=== PATIENT | male | born 1980 | race Caucasian/White ===

== ENCOUNTER 2017-01-20 15:10 | Inpatient (IN) | payer MEDICARE, MEDICAID ==
[~2017-01-20] VITALS: Ht 177.8 cm; Wt 124.0 kg
[~2017-01-20 15:10] MED LIST: ALPR1TAB2 PO; BUSP5TAB2 PO; CITA20TA9 PO; DIAZ10TA4 PO; DIAZ2TAB3 PO; ESZO1TAB6 PO; FLUO20CA19 PO; FLUO40CA9 PO; LAMO25TB2 PO; LEVE250T28 PO; LEVE500T38 PO; LEVE500T53 PO; MORP-52 PO; OMEP-110 PO; OXYC10TA6 PO; PHEN100C PO; PHEN200C3 PO; TRAZ100T15 PO; TRAZ50TA18 PO
[2017-01-20 15:54] LABS: BLOOD UREA NITROGEN 8 mg/dL (7-18)
[2017-01-20] MEDS ORDERED: ONDANSETRON ODT 8 MG ONE (17:55)
[2017-01-20] MEDS ORDERED: OXYcodone IR 5MG TABLET ONE (17:55)
[2017-01-20] MEDS ORDERED: OXYcodone IR 5MG TABLET PO ONE (18:00)
[2017-01-20] MEDS ORDERED: ONDANSETRON ODT 8 MG PO ONE (18:00)
[2017-01-20] MEDS ORDERED: LABETALOL 5MG/ML 40ML VIAL IVPush PRN (20:30)
[2017-01-20] MEDS ORDERED: ONDANSETRON ODT 4 MG PO PRN (20:30)
[2017-01-20] MEDS ORDERED: BISACODYL 10 MG SUPP PR PRN (20:30)
[2017-01-20] MEDS ORDERED: POLYETHYLENE GLYCOL 17 GM PACKET PO PRN (20:30)
[2017-01-20 22:08] VITALS: BP 114/76
[2017-01-20] MEDS: OXYcodone IR 5MG TABLET PO PRN (23:07)
[2017-01-20] MEDS: DIAZEPAM 2 MG TABLET PO PRN (23:50)
[2017-01-21] MEDS: ZOLPIDEM 5MG TABLET PO PRN ×2 (01:08→23:09)
[2017-01-21] MEDS: LEVETIRACETAM 100 MG/ML ORAL SOL PO SCH ×2 (01:09→08:40)
[2017-01-21 01:45] VITALS: BP 117/83
[2017-01-21] MEDS: OXYcodone IR 5MG TABLET PO PRN ×3 (05:52→20:23)
[2017-01-21 06:14] LABS: BLOOD UREA NITROGEN 10 mg/dL (7-18)
[2017-01-21 07:15] VITALS: BP 128/81
[2017-01-21 07:32] LABS: DAU SCREEN DISCLAIMER
[2017-01-21] MEDS: OMEPRAZOLE 20 MG CAPSULE.DR PO SCH (08:39)
[2017-01-21] MEDS: NAPROXEN 500 MG TABLET PO PRN (08:39)
[2017-01-21] MEDS: FLUOXETINE 20 MG CAPSULE PO SCH (08:40)
[2017-01-21] MEDS ORDERED: SENNA/DOCUSATE TABLET PO SCH (09:00)
[2017-01-21 13:02] VITALS: BP 123/80
[2017-01-21] MEDS: ASA/APAP/ CAFFEINE TABLET PO PRN (15:56)
[2017-01-21] MEDS ORDERED: SUMATRIPTAN 6MG/0.5ML SQ ONE (16:30)
[2017-01-21] MEDS: LEVETIRACETAM 1,000 MG in SODIUM CHLORIDE 0.9% 100 ML IV SCH (18:14)
[2017-01-21 19:39] VITALS: BP 116/76
[2017-01-21] MEDS: DIAZEPAM 2 MG TABLET PO PRN (23:09)
[2017-01-22 00:48] VITALS: BP 141/85
[2017-01-22] MEDS: OXYcodone IR 5MG TABLET PO PRN ×3 (04:34→21:15)
[2017-01-22] MEDS: LEVETIRACETAM 1,000 MG in SODIUM CHLORIDE 0.9% 100 ML IV SCH ×2 (06:14→18:39)
[2017-01-22 08:17] VITALS: BP 109/74
[2017-01-22] MEDS: ONDANSETRON 2MG/ML, 2ML IVPush PRN ×2 (08:59→11:34)
[2017-01-22] MEDS: SENNA/DOCUSATE TABLET PO SCH (09:00)
[2017-01-22] MEDS: FLUOXETINE 20 MG CAPSULE PO SCH (09:02)
[2017-01-22] MEDS: ASA/APAP/ CAFFEINE TABLET PO PRN (09:02)
[2017-01-22] MEDS: OMEPRAZOLE 20 MG CAPSULE.DR PO SCH (09:02)
[2017-01-22 09:12] LABS: ASPARTATE AMINO TRANSFERASE 7 U/L (15-37); BLOOD UREA NITROGEN 14 mg/dL (7-18)
[2017-01-22 13:20] VITALS: BP 130/80
[2017-01-22] MEDS: DIAZEPAM 2 MG TABLET PO PRN (14:17)
[2017-01-22] MEDS ORDERED: SUMATRIPTAN 6MG/0.5ML SQ ONE (16:00)
[2017-01-22 19:11] VITALS: BP 120/76
[2017-01-22] MEDS: NAPROXEN 500 MG TABLET PO PRN (21:15)
[2017-01-22] MEDS: ZOLPIDEM 5MG TABLET PO PRN (22:40)
[2017-01-23 00:24] VITALS: BP 128/85
[2017-01-23] MEDS: LEVETIRACETAM 1,000 MG in SODIUM CHLORIDE 0.9% 100 ML IV SCH (06:06)
[2017-01-23] MEDS: OXYcodone IR 5MG TABLET PO PRN ×2 (06:06→12:26)
[2017-01-23 08:00] VITALS: BP 128/85
[2017-01-23] MEDS: SENNA/DOCUSATE TABLET PO SCH (09:00)
[2017-01-23] MEDS: OMEPRAZOLE 20 MG CAPSULE.DR PO SCH (10:13)
[2017-01-23] MEDS: FLUOXETINE 20 MG CAPSULE PO SCH (10:13)
[2017-01-23] MEDS ORDERED: LEVE100020 PO (10:20)
[2017-01-23] MEDS ORDERED: SUMA6PEN SC (10:20)
[2017-01-23 11:38] VITALS: BP 120/76
== END 2017-01-23 13:05 | disposition home or self-care (01) | DRG 101 ==
LOC: ED 18:31 → 4WST 18:32 → INTOOBSV 18:32 → ED 19:23 → 3NE 22:00 → OBSVTOIN 01-21 08:37 → INTOOBSV 01-21 08:37 → DCLOUNGE 01-23 12:48
PROVIDERS: ADMIT Family Medicine; ATTEND Family Medicine
DX: G40.209 Localization-related (focal) (partial) symptomatic epilepsy and epileptic syndromes with complex partial seizures, not intractable, without status epilepticus (principal); G43.909 Migraine, unspecified, not intractable, without status migrainosus; F32.9 Major depressive disorder, single episode, unspecified; F41.9 Anxiety disorder, unspecified; G43.109 Migraine with aura, not intractable, without status migrainosus; G47.00 Insomnia, unspecified; G89.29 Other chronic pain; M41.9 Scoliosis, unspecified; M54.9 Dorsalgia, unspecified; M19.90 Unspecified osteoarthritis, unspecified site; Z88.6 Allergy status to analgesic agent; Z88.1 Allergy status to other antibiotic agents; Q85.01 Neurofibromatosis, type 1; Z88.0 Allergy status to penicillin; Z88.8 Allergy status to other drugs, medicaments and biological substances; M50.30 Other cervical disc degeneration, unspecified cervical region
CPT/HCPCS: 36415; 70450; 72125; 80048; 80053; 80307; 82040; 82542; 85025; 93005; 95819; 99285; G0378; J1953; J2405; Q0162; J3030

== ENCOUNTER 2017-02-10 15:14 | Observation (INO) | payer MEDICARE, MEDICAID ==
[~2017-02-10] VITALS: Ht 177.8 cm; Wt 90.0 kg
[~2017-02-10 15:14] MED LIST changes: -ESZO1TAB6 PO; +ESZO1TAB8 PO; +LEVE100020 PO; -LEVE500T38 PO; +LEVE500T54 PO; +SUMA6PEN SC
[2017-02-10 15:32] LABS: DAU SCREEN DISCLAIMER
[2017-02-10 15:53] LABS: ASPARTATE AMINO TRANSFERASE 20 U/L (15-37); BLOOD UREA NITROGEN 10 mg/dL (7-18)
[2017-02-10 15:54] LABS: HEMOGLOBIN 15.2 g/dL (13.7-18.0); WHITE BLOOD COUNT 7.3 x10^3/uL (3.4-10)
[2017-02-10 15:57] LABS: ACETAMINOPHEN < 2 mcg/mL (10-30)
[2017-02-10] MEDS ORDERED: FLUO40CA9 PO (20:15)
[2017-02-10] MEDS ORDERED: MORP-52 PO (20:15)
[2017-02-10] MEDS ORDERED: LORA-446 PO (20:15)
[2017-02-10] MEDS ORDERED: ARIP10TA33 PO (20:15)
[2017-02-10] MEDS ORDERED: OXYC5TAB3 PO (20:15)
[2017-02-10] MEDS ORDERED: DOCUSATE 100 MG CAPSULE PO PRN (20:30)
[2017-02-10] MEDS ORDERED: POTASSIUM CHLORIDE 20 MEQ TAB.ER.PRT PO ONE (20:30)
[2017-02-10] MEDS ORDERED: BISACODYL 10 MG SUPP PR PRN (20:30)
[2017-02-10] MEDS ORDERED: POLYETHYLENE GLYCOL 17 GM PACKET PO PRN (20:30)
[2017-02-10] MEDS ORDERED: POTASSIUM CHLORIDE 20 MEQ TAB.ER.PRT ONE (20:35)
[2017-02-10] MEDS ORDERED: LORazepam 1MG TABLET ONE (20:40)
[2017-02-10] MEDS: LORazepam 1MG TABLET PO SCH (20:42)
[2017-02-10] MEDS: ESZOPICLONE 2 MG PO SCH (21:00)
[2017-02-10 21:20] VITALS: BP 141/101
[2017-02-10] MEDS: OXYcodone IR 5MG TABLET PO SCH (21:58)
[2017-02-10] MEDS: LEVETIRACETAM 500 MG TABLET PO SCH (21:58)
[2017-02-10 23:53] VITALS: BP 123/76
[2017-02-11] MEDS: ZOLPIDEM 5MG TABLET PO PRN ×2 (00:02→21:18)
[2017-02-11] MEDS: OXYcodone IR 5MG TABLET PO SCH ×4 (05:54→20:13)
[2017-02-11 08:00] VITALS: BP 115/73
[2017-02-11] MEDS: LORazepam 1MG TABLET PO SCH ×2 (08:21→20:13)
[2017-02-11] MEDS: LEVETIRACETAM 500 MG TABLET PO SCH ×2 (08:21→20:13)
[2017-02-11] MEDS: FLUOXETINE 20 MG CAPSULE PO SCH (09:23)
[2017-02-11 19:40] VITALS: BP 114/72
[2017-02-11] MEDS: ESZOPICLONE 2 MG PO SCH (20:14)
[2017-02-12 05:24] LABS: BLOOD UREA NITROGEN 9 mg/dL (7-18)
[2017-02-12] MEDS: OXYcodone IR 5MG TABLET PO SCH ×4 (06:06→19:50)
[2017-02-12 07:23] VITALS: BP 114/72
[2017-02-12] MEDS: LEVETIRACETAM 500 MG TABLET PO SCH ×2 (08:25→19:50)
[2017-02-12] MEDS: LORazepam 1MG TABLET PO SCH ×2 (08:25→19:50)
[2017-02-12] MEDS: FLUOXETINE 20 MG CAPSULE PO SCH (08:25)
[2017-02-12] MEDS: SUMATRIPTAN 50 MG TABLET PO PRN ×3 (14:54→23:10)
[2017-02-12] MEDS ORDERED: LORazepam 1MG TABLET PO ONE (18:30)
[2017-02-12] MEDS: ZOLPIDEM 5MG TABLET PO PRN (19:51)
[2017-02-12 20:00] VITALS: BP 123/76
[2017-02-12] MEDS ORDERED: ZOLPIDEM 5MG TABLET PO ONE (21:00)
[2017-02-12] MEDS: ESZOPICLONE 2 MG PO SCH (21:00)
[2017-02-13] MEDS: OXYcodone IR 5MG TABLET PO SCH ×3 (05:40→23:14)
[2017-02-13 08:06] VITALS: BP 119/78
[2017-02-13] MEDS: FLUOXETINE 20 MG CAPSULE PO SCH (08:17)
[2017-02-13] MEDS: LEVETIRACETAM 500 MG TABLET PO SCH ×2 (08:17→20:21)
[2017-02-13] MEDS: LORazepam 1MG TABLET PO SCH (08:17)
[2017-02-13] MEDS ORDERED: OXYcodone IR 5MG TABLET PO SCH ×2 (12:00→13:00)
[2017-02-13] MEDS: ONDANSETRON ODT 4 MG PO PRN (13:10)
[2017-02-13 19:29] VITALS: BP 117/79
[2017-02-13] MEDS ORDERED: ZOLPIDEM 5MG TABLET ONE (19:50)
[2017-02-13] MEDS: ZOLPIDEM 10MG TABLET PO PRN (20:21)
[2017-02-13] MEDS: ESZOPICLONE 2 MG PO SCH (21:00)
[2017-02-14 00:10] VITALS: BP 117/90
[2017-02-14] MEDS: SUMATRIPTAN 50 MG TABLET PO PRN (00:18)
[2017-02-14] MEDS: OXYcodone IR 5MG TABLET PO SCH ×3 (06:21→18:03)
[2017-02-14] MEDS: LEVETIRACETAM 500 MG TABLET PO SCH ×2 (08:03→20:20)
[2017-02-14] MEDS: FLUOXETINE 20 MG CAPSULE PO SCH (08:04)
[2017-02-14 08:15] VITALS: BP 144/89
[2017-02-14 19:34] VITALS: BP 116/76
[2017-02-14] MEDS ORDERED: ZOLPIDEM 5MG TABLET ONE (19:38)
[2017-02-14] MEDS: ZOLPIDEM 10MG TABLET PO PRN (20:20)
[2017-02-14] MEDS: ESZOPICLONE 2 MG PO SCH (20:22)
[2017-02-14] MEDS: ONDANSETRON ODT 4 MG PO PRN (22:08)
[2017-02-15] MEDS: OXYcodone IR 5MG TABLET PO SCH ×5 (00:04→23:55)
[2017-02-15 08:00] VITALS: BP 135/86
[2017-02-15] MEDS: FLUOXETINE 20 MG CAPSULE PO SCH (08:55)
[2017-02-15] MEDS: LEVETIRACETAM 500 MG TABLET PO SCH ×2 (08:56→20:07)
[2017-02-15] MEDS ORDERED: BISACODYL 10 MG SUPP PR PRN (14:30)
[2017-02-15] MEDS ORDERED: DOCUSATE 100 MG CAPSULE PO PRN (14:30)
[2017-02-15] MEDS ORDERED: POLYETHYLENE GLYCOL 17 GM PACKET PO PRN (14:30)
[2017-02-15 19:20] VITALS: BP 120/77
[2017-02-15] MEDS ORDERED: ZOLPIDEM 5MG TABLET ONE (19:40)
[2017-02-15] MEDS: ZOLPIDEM 10MG TABLET PO PRN (20:09)
[2017-02-15] MEDS: ESZOPICLONE 2 MG PO SCH (21:00)
[2017-02-16] MEDS: OXYcodone IR 5MG TABLET PO SCH ×3 (06:33→17:50)
[2017-02-16 08:01] VITALS: BP 110/75
[2017-02-16] MEDS: LEVETIRACETAM 500 MG TABLET PO SCH ×2 (08:03→20:18)
[2017-02-16] MEDS: FLUOXETINE 20 MG CAPSULE PO SCH (08:03)
[2017-02-16 19:23] VITALS: BP 122/76
[2017-02-16] MEDS ORDERED: ZOLPIDEM 5MG TABLET ONE (20:27)
[2017-02-16] MEDS: ESZOPICLONE 2 MG PO SCH (20:29)
[2017-02-16] MEDS: ZOLPIDEM 10MG TABLET PO PRN (20:29)
[2017-02-17] MEDS: OXYcodone IR 5MG TABLET PO SCH ×3 (00:01→12:11)
[2017-02-17 08:30] VITALS: BP 121/76
[2017-02-17] MEDS ORDERED: FLUOXETINE 20 MG CAPSULE PO SCH (09:00)
[2017-02-17] MEDS: LEVETIRACETAM 500 MG TABLET PO SCH (09:34)
[2017-02-17] MEDS ORDERED: FLUO20CA8 PO (11:01)
[2017-02-17] MEDS ORDERED: QUET100T PO (11:01)
[2017-02-17] MEDS ORDERED: DOCU-131 PO (11:01)
[2017-02-17] MEDS ORDERED: QUETIAPINE 100MG TABLET PO SCH (21:00)
== END 2017-02-17 13:22 ==
LOC: ED 15:26 → SUATTDRO 20:03 → EDIP 20:04 → INTOOBSV 20:04 → 3E 21:18
DX: R45.851 Suicidal ideations (principal); F41.9 Anxiety disorder, unspecified; E87.6 Hypokalemia; F32.9 Major depressive disorder, single episode, unspecified; Q85.01 Neurofibromatosis, type 1; G89.29 Other chronic pain; G43.909 Migraine, unspecified, not intractable, without status migrainosus; G40.909 Epilepsy, unspecified, not intractable, without status epilepticus; F51.04 Psychophysiologic insomnia
CPT/HCPCS: 36415; 80048; 80053; 80307; 80329; 85025; 93005; 99285; G0378; Q0162; G0480

== ENCOUNTER 2017-02-21 12:05 | Emergency (ER) | payer MEDICARE, MEDICAID ==
[~2017-02-21] VITALS: Ht 177.8 cm; Wt 113.0 kg
[~2017-02-21 12:05] MED LIST changes: +ARIP10TA33 PO; +DOCU-131 PO; +FLUO20CA8 PO; +LORA-446 PO; +OXYC5TAB3 PO; +QUET100T PO
[2017-02-21] MEDS ORDERED: MORPHINE SULFATE 4 MG/ML, 1ML ONE ×2 (12:47→13:53)
[2017-02-21] MEDS ORDERED: ONDANSETRON 2MG/ML, 2ML ONE (12:48)
[2017-02-21] MEDS ORDERED: ONDANSETRON 2MG/ML, 2ML IVPush ONE (13:00)
[2017-02-21] MEDS ORDERED: SODIUM CHLORIDE 0.9% 1,000ML IVBOLUS ONE (13:00)
[2017-02-21] MEDS ORDERED: SODIUM CHLORIDE FLUSH 10ML SYR IVF ONE (13:00)
[2017-02-21 13:06] LABS: HEMATOCRIT 44.6 % (39.2-51.8); HEMOGLOBIN 14.9 g/dL (13.7-18.0); WHITE BLOOD COUNT 8.4 x10^3/uL (3.4-10)
[2017-02-21] MEDS: MORPHINE SULFATE 4 MG/ML, 1ML IVPush PRN ×2 (13:06→13:55)
[2017-02-21 13:18] LABS: ASPARTATE AMINO TRANSFERASE 11 U/L (15-37); BLOOD UREA NITROGEN 9 mg/dL (7-18)
[2017-02-21 15:09] VITALS: BP 117/71
[2017-02-21] MEDS ORDERED: OMNIPAQUE 350 MG/ML, 100ML BOTTLE ONE (17:25)
== END 2017-02-21 15:12 | disposition home or self-care (01) ==
LOC: ED 15:00
DX: R10.11 Right upper quadrant pain (principal); R11.2 Nausea with vomiting, unspecified; R63.0 Anorexia; F41.9 Anxiety disorder, unspecified; G40.909 Epilepsy, unspecified, not intractable, without status epilepticus; F32.9 Major depressive disorder, single episode, unspecified; Z90.49 Acquired absence of other specified parts of digestive tract
CPT/HCPCS: 36415; 74177; 80053; 81001; 83690; 85025; 87086; 96361; 96374; 96375; 96376; 99285; J2405; J7030; Q9967

== ENCOUNTER 2017-06-27 13:48 | Emergency (ER) | payer MEDICARE, MEDICAID ==
[~2017-06-27] VITALS: Ht 177.8 cm; Wt 134.7 kg
[~2017-06-27 13:48] MED LIST changes: +PHEN30CA PO
[2017-06-27 14:45] LABS: BASOPHILS # (AUTO) 0.14 x10^3/uL (0-0.1); BASOPHILS % (AUTO) 1 % (0-1); EOSINOPHILS # (AUTO) 0.13 x10^3/uL (0-0.4); EOSINOPHILS % (AUTO) 1 % (1-7); LYMPHOCYTES # (AUTO) 2.17 x10^3/uL (1-3.4); LYMPHOCYTES % (AUTO) 20 % (22-44); MD NO; MEAN CORPUSCULAR HEMOGLOBIN 27.8 pg (27.5-34.5); MEAN CORPUSCULAR HGB CONC 33.8 g/dL (33.2-36.2); MEAN CORPUSCULAR VOLUME 82.5 fL (81-97); MONOCYTES # (AUTO) 0.75 x10^3/uL (0.2-0.8); MONOCYTES % (AUTO) 7 % (2-9); NEUTROPHILS # (AUTO) 7.53 x10^3/uL (1.8-6.8); NEUTROPHILS % (AUTO) 70 % (42-75); PLATELET COUNT 306 x10^3/uL (130-400); RED BLOOD COUNT 5.84 x10^6/uL (4.38-5.82); RED CELL DISTRIBUTION WIDTH 13.6 % (9.4-14.8)
[2017-06-27 14:52] LABS: ALANINE AMINOTRANSFERASE 29 U/L (12-78); ALBUMIN 4.2 g/dL (3.4-5.0); ANION GAP 7 mmol/L (5-15); CALCIUM 8.7 mg/dL (8.5-10.1); CHLORIDE 109 mmol/L (98-107); CREATININE 0.95 mg/dL (0.7-1.3)
[2017-06-27 14:54] LABS: ALKALINE PHOSPHATASE 90 U/L (45-117); BILIRUBIN,TOTAL 0.5 mg/dL (0.2-1.0); TOTAL PROTEIN 7.8 g/dL (6.4-8.2)
[2017-06-27 15:24] LABS: MICROSCOPIC NOT IND
[2017-06-27 15:30] LABS: CULTURE INDICATED? NO
[2017-06-27] MEDS ORDERED: OXYcodone IR 5MG TABLET PO ONE (16:30)
[2017-06-27] MEDS ORDERED: ONDANSETRON ODT 8 MG PO ONE (16:30)
[2017-06-27] MEDS ORDERED: OXYcodone IR 5MG TABLET ONE (16:32)
[2017-06-27] MEDS ORDERED: ONDANSETRON ODT 8 MG ONE (16:33)
[2017-06-27] MEDS ORDERED: DICYCLOMINE 20 MG TABLET PO ONE (18:00)
[2017-06-27 19:22] VITALS: BP 154/91
== END 2017-06-27 19:25 | disposition home or self-care (01) ==
LOC: ED 15:19
DX: R10.12 Left upper quadrant pain (principal); R11.2 Nausea with vomiting, unspecified; G40.909 Epilepsy, unspecified, not intractable, without status epilepticus; Z90.49 Acquired absence of other specified parts of digestive tract; Z88.1 Allergy status to other antibiotic agents; Z88.0 Allergy status to penicillin
CPT/HCPCS: 36415; 74020; 74176; 80053; 81003; 83690; 85025; 99285; Q0162

== ENCOUNTER 2017-07-27 14:47 | Emergency (ER) | payer MEDICARE, MEDICAID ==
[~2017-07-27] VITALS: Ht 177.8 cm; Wt 118.0 kg
[2017-07-27] MEDS ORDERED: ONDANSETRON 2MG/ML, 2ML ONE (15:19)
[2017-07-27] MEDS ORDERED: MORPHINE SULFATE 4 MG/ML, 1ML ONE ×2 (15:20→16:24)
[2017-07-27 15:27] LABS: BASOPHILS # (AUTO) 0.02 x10^3/uL (0-0.1); BASOPHILS % (AUTO) 0 % (0-1); EOSINOPHILS # (AUTO) 0.13 x10^3/uL (0-0.4); EOSINOPHILS % (AUTO) 2 % (1-7); LYMPHOCYTES % (AUTO) 18 % (22-44); MD NO; MEAN CORPUSCULAR HEMOGLOBIN 28.2 pg (27.5-34.5); MEAN CORPUSCULAR HGB CONC 33.6 g/dL (33.2-36.2); MEAN CORPUSCULAR VOLUME 83.8 fL (81-97); MONOCYTES # (AUTO) 0.54 x10^3/uL (0.2-0.8); MONOCYTES % (AUTO) 8 % (2-9); NEUTROPHILS # (AUTO) 5.24 x10^3/uL (1.8-6.8); NEUTROPHILS % (AUTO) 72 % (42-75); PLATELET COUNT 285 x10^3/uL (130-400); RED BLOOD COUNT 5.62 x10^6/uL (4.38-5.82); RED CELL DISTRIBUTION WIDTH 13.9 % (9.4-14.8)
[2017-07-27] MEDS: MORPHINE SULFATE 4 MG/ML, 1ML IVPush PRN ×2 (15:27→16:27)
[2017-07-27] MEDS ORDERED: SODIUM CHLORIDE 0.9% 1,000ML IVBOLUS ONE (15:30)
[2017-07-27] MEDS ORDERED: ONDANSETRON 2MG/ML, 2ML IVPush ONE (15:30)
[2017-07-27 15:36] LABS: ANION GAP 5 mmol/L (5-15); CALCIUM 8.3 mg/dL (8.5-10.1); CHLORIDE 108 mmol/L (98-107)
[2017-07-27 15:37] LABS: ALBUMIN 4.1 g/dL (3.4-5.0)
[2017-07-27 15:40] LABS: ALANINE AMINOTRANSFERASE 31 U/L (12-78); ALKALINE PHOSPHATASE 80 U/L (45-117); BILIRUBIN,TOTAL 0.7 mg/dL (0.2-1.0); CREATININE 0.94 mg/dL (0.7-1.3); TOTAL PROTEIN 7.1 g/dL (6.4-8.2)
[2017-07-27 15:47] LABS: MICROSCOPIC NOT IND
[2017-07-27 15:50] LABS: CULTURE INDICATED? NO
[2017-07-27 16:29] VITALS: BP 132/85
== END 2017-07-27 16:45 | disposition home or self-care (01) ==
LOC: ED 16:38
DX: K52.9 Noninfective gastroenteritis and colitis, unspecified (principal); Z90.49 Acquired absence of other specified parts of digestive tract
CPT/HCPCS: 36415; 76700; 80053; 81003; 83690; 85025; 96361; 96374; 96375; 96376; 99285; J2405; J7030

== ENCOUNTER 2018-01-04 19:52 | Emergency (ER) | payer MEDICARE, MEDICAID ==
[~2018-01-04] VITALS: Ht 177.8 cm; Wt 135.6 kg
[2018-01-04 20:01] VITALS: BP 151/87
[2018-01-04] MEDS ORDERED: MECLIZINE CHEWABLE 25 MG TAB PO ONE (20:30)
[2018-01-04 21:00] LABS: BASOPHILS # (AUTO) 0.03 x10^3/uL (0-0.1); BASOPHILS % (AUTO) 0 % (0-1); EOSINOPHILS # (AUTO) 0.14 x10^3/uL (0-0.4); EOSINOPHILS % (AUTO) 1 % (1-7); LYMPHOCYTES # (AUTO) 1.95 x10^3/uL (1-3.4); LYMPHOCYTES % (AUTO) 19 % (22-44); MD NO; MEAN CORPUSCULAR HEMOGLOBIN 28.5 pg (27.5-34.5); MEAN CORPUSCULAR HGB CONC 33.6 g/dL (33.2-36.2); MEAN CORPUSCULAR VOLUME 84.6 fL (81-97); MEAN PLATELET VOLUME 7.8 fL (7.4-10.4); MONOCYTES % (AUTO) 8 % (2-9); NEUTROPHILS # (AUTO) 7.31 x10^3/uL (1.8-6.8); NEUTROPHILS % (AUTO) 72 % (42-75); PLATELET COUNT 280 x10^3/uL (130-400); RED BLOOD COUNT 5.69 x10^6/uL (4.38-5.82); RED CELL DISTRIBUTION WIDTH 13.8 % (9.4-14.8)
[2018-01-04 21:13] LABS: ALANINE AMINOTRANSFERASE 35 U/L (12-78); ALBUMIN 4.1 g/dL (3.4-5.0); ANION GAP 7 mmol/L (5-15); CALCIUM 8.7 mg/dL (8.5-10.1); CHLORIDE 112 mmol/L (98-107); CREATININE 1.07 mg/dL (0.7-1.3)
[2018-01-04 21:15] LABS: ALKALINE PHOSPHATASE 88 U/L (45-117); BILIRUBIN,TOTAL 0.3 mg/dL (0.2-1.0)
[2018-01-04 21:16] LABS: TOTAL PROTEIN 7.5 g/dL (6.4-8.2)
[2018-01-04] MEDS ORDERED: FLUO40CA9 PO (21:29)
[2018-01-04] MEDS ORDERED: TRAZ300T2 PO (21:30)
[2018-01-04] MEDS ORDERED: TOPI50TA35 PO (21:30)
[2018-01-04] MEDS ORDERED: MECLIZINE CHEWABLE 25 MG TAB ONE (21:31)
[2018-01-04] MEDS ORDERED: ONDANSETRON ODT 4 MG ONE (21:54)
[2018-01-04] MEDS ORDERED: DICYCLOMINE 10 MG/ML, 2ML ONE (21:55)
[2018-01-04] MEDS ORDERED: DICYCLOMINE 10 MG/ML, 2ML IM ONE (22:00)
[2018-01-04] MEDS ORDERED: ONDANSETRON ODT 8 MG ONE (22:00)
[2018-01-04] MEDS ORDERED: ONDANSETRON ODT 8 MG PO ONE (22:00)
== END 2018-01-04 22:34 | disposition home or self-care (01) ==
LOC: ED 22:30
DX: R53.1 Weakness (principal); R11.0 Nausea; G43.909 Migraine, unspecified, not intractable, without status migrainosus; G40.909 Epilepsy, unspecified, not intractable, without status epilepticus
CPT/HCPCS: 36415; 80053; 85025; 93005; 96372; 99285; J0500; Q0162

== ENCOUNTER 2018-01-05 09:34 | Emergency (ER) | payer MEDICARE, MEDICAID ==
[~2018-01-05] VITALS: Ht 177.8 cm; Wt 135.0 kg
[~2018-01-05 09:34] MED LIST changes: +TOPI50TA35 PO; +TRAZ300T2 PO
[2018-01-05 09:36] VITALS: BP 134/98
[2018-01-05 10:04] LABS: BASOPHILS % (AUTO) 0 % (0-1); EOSINOPHILS # (AUTO) 0.11 x10^3/uL (0-0.4); EOSINOPHILS % (AUTO) 2 % (1-7); LYMPHOCYTES # (AUTO) 1.39 x10^3/uL (1-3.4); LYMPHOCYTES % (AUTO) 20 % (22-44); MD NO; MEAN CORPUSCULAR HEMOGLOBIN 28.1 pg (27.5-34.5); MEAN CORPUSCULAR HGB CONC 33.2 g/dL (33.2-36.2); MEAN CORPUSCULAR VOLUME 84.7 fL (81-97); MEAN PLATELET VOLUME 7.8 fL (7.4-10.4); MONOCYTES # (AUTO) 0.33 x10^3/uL (0.2-0.8); MONOCYTES % (AUTO) 5 % (2-9); NEUTROPHILS # (AUTO) 5.25 x10^3/uL (1.8-6.8); NEUTROPHILS % (AUTO) 74 % (42-75); PLATELET COUNT 283 x10^3/uL (130-400); RED BLOOD COUNT 5.57 x10^6/uL (4.38-5.82); RED CELL DISTRIBUTION WIDTH 13.9 % (9.4-14.8)
[2018-01-05 10:14] LABS: ALBUMIN 3.8 g/dL (3.4-5.0); ANION GAP 8 mmol/L (5-15); CALCIUM 8.4 mg/dL (8.5-10.1); CHLORIDE 110 mmol/L (98-107); CREATININE 1.11 mg/dL (0.7-1.3)
== END 2018-01-05 10:31 | disposition home or self-care (01) ==
LOC: ED 09:45
DX: R53.1 Weakness (principal); F41.9 Anxiety disorder, unspecified; F32.9 Major depressive disorder, single episode, unspecified; Z90.49 Acquired absence of other specified parts of digestive tract
CPT/HCPCS: 36415; 80048; 82040; 85025; 99284

== ENCOUNTER 2018-01-28 16:46 | Emergency (ER) | payer MEDICARE, MEDICAID ==
[~2018-01-28] VITALS: Ht 177.8 cm; Wt 80.0 kg
[~2018-01-28 16:46] MED LIST changes: +TRAZ-136 PO; +TRAZ-137 PO; -TRAZ100T15 PO; -TRAZ50TA18 PO
[2018-01-28 16:55] VITALS: BP 131/91
[2018-01-28] MEDS ORDERED: LIDOCAINE-MPF 1%, 2ML ONE (17:28)
[2018-01-28] MEDS ORDERED: LIDOCAINE 1%, 2ML INFIL ONE (17:30)
== END 2018-01-28 18:18 | disposition home or self-care (01) ==
LOC: ED 17:56
DX: T81.33XA Disruption of traumatic injury wound repair, initial encounter (principal); Y83.8 Other surgical procedures as the cause of abnormal reaction of the patient, or of later complication, without mention of misadventure at the time of the procedure; Y92.89 Other specified places as the place of occurrence of the external cause; G40.909 Epilepsy, unspecified, not intractable, without status epilepticus; F32.9 Major depressive disorder, single episode, unspecified
CPT/HCPCS: 12001; 12020; 99283; 99284

== ENCOUNTER → 2018-02-04 | Outpatient (CLI) | payer MEDICARE, MEDICAID | END | disposition home or self-care (01) | LOC: RAD 11:48 | PROVIDERS: ATTEND Orthopaedic Surgery | DX: R07.89 Other chest pain (principal); M25.811 Other specified joint disorders, right shoulder | CPT/HCPCS: 71046 ==

== ENCOUNTER 2018-04-01 18:06 | Emergency (ER) | payer MEDICARE, OTHER ==
[~2018-04-01] VITALS: Ht 177.8 cm; Wt 139.6 kg
[2018-04-01 18:20] VITALS: BP 141/77
[2018-04-01] MEDS ORDERED: HYDROcodone/APAP 5/325 TABLET PO ONE (19:00)
[2018-04-01] MEDS ORDERED: HYDROcodone/APAP 5/325 TABLET ONE (19:04)
== END 2018-04-01 19:23 | disposition home or self-care (01) ==
LOC: ED 19:05
DX: R07.89 Other chest pain (principal)
CPT/HCPCS: 71046; 93005; 99284

== ENCOUNTER 2018-09-23 14:39 | Emergency (ER) | payer MEDICARE, OTHER ==
[~2018-09-23] VITALS: Ht 177.8 cm; Wt 139.4 kg
[~2018-09-23 14:39] MED LIST changes: -TRAZ-136 PO; +TRAZ50TA66 PO
[2018-09-23 14:54] LABS: BASOPHILS % (AUTO) 1 % (0-1); EOSINOPHILS % (AUTO) 1 % (1-7); LYMPHOCYTES # (AUTO) 1.25 x10^3/uL (1-3.4); LYMPHOCYTES % (AUTO) 14 % (22-44); MD NO; MEAN CORPUSCULAR HEMOGLOBIN 27.2 pg (27.5-34.5); MEAN CORPUSCULAR HGB CONC 33.7 g/dL (33.2-36.2); MEAN CORPUSCULAR VOLUME 80.7 fL (81-97); MEAN PLATELET VOLUME 8.3 fL (7.4-10.4); MONOCYTES # (AUTO) 0.54 x10^3/uL (0.2-0.8); MONOCYTES % (AUTO) 6 % (2-9); NEUTROPHILS # (AUTO) 6.67 x10^3/uL (1.8-6.8); NEUTROPHILS % (AUTO) 77 % (42-75); PLATELET COUNT 312 x10^3/uL (130-400); RED BLOOD COUNT 5.76 x10^6/uL (4.38-5.82); RED CELL DISTRIBUTION WIDTH 14.1 % (9.4-14.8)
[2018-09-23] MEDS ORDERED: MIDAZOLAM 1 MG/ML, 2ML IVPush ONE (15:00)
[2018-09-23] MEDS ORDERED: MIDAZOLAM 1 MG/ML, 2ML ONE (15:02)
--- NOTE | 2018-09-23 15:08 | NUR ---
pt to MRI on 3L O2. 2mg versed given prior to pt going to MRI.
[2018-09-23 15:11] LABS: INTERNATIONAL NORMALIZED RATIO 1.07 (0.93-1.1); PROTHROMBIN TIME 11.2 Seconds (9.6-11.5)
[2018-09-23] MEDS ORDERED: HYDR-3245 PO (15:21)
[2018-09-23] MEDS ORDERED: LORA1TAB PO (15:21)
[2018-09-23] MEDS ORDERED: PLEASE ENTER HEIGHT AND WEIGHT MC SCH (15:30)
[2018-09-23] MEDS ORDERED: PROCHLORPERAZINE 5 MG/ML, 2ML ONE (16:15)
[2018-09-23] MEDS ORDERED: DIPHENHYDRAMINE 50 MG/ML, 1ML ONE (16:15)
[2018-09-23] MEDS ORDERED: DIPHENHYDRAMINE 50 MG/ML, 1ML IVPush ONE (16:30)
[2018-09-23] MEDS ORDERED: SODIUM CHLORIDE 0.9% 1,000ML IVBOLUS ONE (16:30)
[2018-09-23] MEDS ORDERED: PROCHLORPERAZINE 5 MG/ML, 2ML IVPush ONE (16:30)
== END 2018-09-23 18:21 ==
LOC: ED 15:50
DX: G43.009 Migraine without aura, not intractable, without status migrainosus (principal); G40.909 Epilepsy, unspecified, not intractable, without status epilepticus; Z88.0 Allergy status to penicillin; Z88.5 Allergy status to narcotic agent
CPT/HCPCS: 36415; 70450; 70551; 80047; 82962; 85025; 85610; 85730; 93005; 96374; 96375; 99291; J0780; J1200; J2250; J7030

== ENCOUNTER 2019-02-07 10:37 | Emergency (ER) | payer MEDICARE, MEDICAID ==
[~2019-02-07] VITALS: Ht 180.3 cm; Wt 125.3 kg
[2019-02-07 15:18] VITALS: BP 144/81
== END 2019-02-07 15:20 | disposition home or self-care (01) ==
LOC: ED 12:33
DX: R10.31 Right lower quadrant pain (principal); R11.2 Nausea with vomiting, unspecified; R19.7 Diarrhea, unspecified; F41.1 Generalized anxiety disorder; F32.9 Major depressive disorder, single episode, unspecified; G40.909 Epilepsy, unspecified, not intractable, without status epilepticus; Z90.49 Acquired absence of other specified parts of digestive tract
CPT/HCPCS: 36415; 74176; 80053; 81003; 85025; 96372; 96374; 99284; J1170; J2550

== ENCOUNTER 2019-04-30 18:16 | Emergency (ER) | payer MEDICAID, MEDICARE ==
[~2019-04-30] VITALS: Ht 177.8 cm; Wt 116.0 kg
[~2019-04-30 18:16] MED LIST changes: +HYDR-3245 PO; +LORA1TAB PO; +SUVO20TA PO; +TIZA4TAB2 PO
[2019-04-30] MEDS ORDERED: ONDANSETRON 2MG/ML, 2ML ONE (19:41)
[2019-04-30] MEDS ORDERED: DICYCLOMINE 20 MG TABLET ONE (19:41)
[2019-04-30] MEDS ORDERED: DICYCLOMINE 10 MG/ML, 2ML ONE (19:42)
[2019-04-30 19:47] LABS: BASOPHILS # (AUTO) 0.03 x10^3/uL (0-0.1); BASOPHILS % (AUTO) 0 % (0-1); EOSINOPHILS # (AUTO) 0.11 x10^3/uL (0-0.4); EOSINOPHILS % (AUTO) 1 % (1-7); LYMPHOCYTES # (AUTO) 1.33 x10^3/uL (1-3.4); LYMPHOCYTES % (AUTO) 13 % (22-44); MD NO; MEAN CORPUSCULAR HEMOGLOBIN 25.7 pg (27.5-34.5); MEAN CORPUSCULAR HGB CONC 32.3 g/dL (33.2-36.2); MEAN CORPUSCULAR VOLUME 79.4 fL (81-97); MEAN PLATELET VOLUME 8.5 fL (7.4-10.4); MONOCYTES # (AUTO) 0.59 x10^3/uL (0.2-0.8); MONOCYTES % (AUTO) 6 % (2-9); NEUTROPHILS # (AUTO) 8.13 x10^3/uL (1.8-6.8); NEUTROPHILS % (AUTO) 80 % (42-75); PLATELET COUNT 350 x10^3/uL (130-400); RED BLOOD COUNT 5.97 x10^6/uL (4.38-5.82); RED CELL DISTRIBUTION WIDTH 16.4 % (9.4-14.8)
[2019-04-30 19:58] LABS: ALBUMIN 4.4 g/dL (3.4-5.0); ANION GAP 7 mmol/L (5-15); CALCIUM 9.2 mg/dL (8.5-10.1); CHLORIDE 108 mmol/L (98-107)
[2019-04-30] MEDS ORDERED: DICYCLOMINE 20 MG TABLET PO ONE (20:00)
[2019-04-30] MEDS ORDERED: ONDANSETRON 2MG/ML, 2ML IVPush ONE (20:00)
[2019-04-30] MEDS ORDERED: DICYCLOMINE 10 MG/ML, 2ML IM ONE (20:00)
[2019-04-30 20:01] LABS: ALANINE AMINOTRANSFERASE 19 U/L (12-78); ALKALINE PHOSPHATASE 89 U/L (45-117); BILIRUBIN,TOTAL 0.3 mg/dL (0.2-1.0); CREATININE 1.01 mg/dL (0.7-1.3)
--- NOTE | 2019-04-30 20:04 | NUR ---
PT TO ROOM 19 W/ C/O ABD PAIN/CRAMPING THROUGHOUT STARTED LAST NOC. PT NOW HAS C/O BLOODY DIARRHEA STARTED TODAY. PT C/O SEVERE RLQ ABD PAIN. ERP NOTIFIED. PT TEARFUL ON GURNEY. MEDICATED PER AUG. WAM BLANKET PROVIDED. FAMILY AT BEDSIDE.
[2019-04-30 20:10] LABS: MICROSCOPIC NOT IND
[2019-04-30 20:12] LABS: CULTURE INDICATED? NO
--- NOTE | 2019-04-30 20:33 | NUR ---
PT REQUESTING PAIN MEDS. ERP DR. ORTEGA NOTIFIED. PER ERP NO PAIN MEDS AND NO IMAGING TO BE ORDERED FOR PT.
--- NOTE | 2019-04-30 20:38 | NUR ---
ERP DR. ORTEGA AT BEDSIDE.
[2019-04-30 20:47] VITALS: BP 159/84
[2019-04-30] MEDS ORDERED: PROMETHAZINE 25 MG/ML, 1ML IM ONE (21:00)
[2019-04-30] MEDS ORDERED: OXYcodone IR 5MG TABLET PO ONE (21:00)
[2019-04-30] MEDS ORDERED: PROMETHAZINE 25 MG/ML, 1ML ONE (21:03)
[2019-04-30] MEDS ORDERED: OXYcodone IR 5MG TABLET ONE (21:04)
--- NOTE | 2019-04-30 21:23 | NUR ---
REPORT GIVEN TO PACO FELIZ.
== END 2019-04-30 21:48 | disposition home or self-care (01) ==
LOC: ED 19:40
DX: R10.84 Generalized abdominal pain (principal); R11.2 Nausea with vomiting, unspecified; R19.7 Diarrhea, unspecified; G43.909 Migraine, unspecified, not intractable, without status migrainosus; G40.909 Epilepsy, unspecified, not intractable, without status epilepticus; F41.1 Generalized anxiety disorder; Z90.49 Acquired absence of other specified parts of digestive tract; Z72.9 Problem related to lifestyle, unspecified
CPT/HCPCS: 36415; 80053; 81003; 83690; 85025; 96372; 96374; 99283; J0500; J2405; J2550

== ENCOUNTER 2019-10-24 11:08 | Emergency (ER) | payer MEDICARE, MEDICAID ==
[~2019-10-24] VITALS: Ht 182.9 cm; Wt 126.0 kg
[~2019-10-24 11:08] MED LIST changes: +FLUO20CA23 PO; -FLUO20CA8 PO; -TRAZ-137 PO; +TRAZ-175 PO
[2019-10-24 11:19] VITALS: BP 140/84
[2019-10-24] MEDS ORDERED: LIDOCAINE-MPF 1%, 5ML INFIL ONE (12:00)
--- NOTE | 2019-10-24 12:53 | NUR ---
Precious arias in ED - 10/24/19 at 1303 by [email or web address] [facility]: PT TAKEN TO ROOM AT THIS TIME VIA WHEELCHAIROdell WISE.
[2019-10-24] MEDS ORDERED: LIDOCAINE-MPF 1%, 2ML ONE ×2 (12:58→13:34)
--- NOTE | 2019-10-24 13:28 | NUR ---
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
--- NOTE | 2019-10-24 13:36 | NUR ---
FIRST CONTACT WITH PT. PT STATES "I HAVE A SEVERELY INGROWN TOE NAIL X 10DAYS" LT 1ST TOE AND LT RING FINGER PAIN. PT'S AOX4. RESPS EVEN AND UNLABORED.
[2019-10-24] MEDS ORDERED: BUPIVACAINE 0.25% ONE (14:29)
--- NOTE | 2019-10-24 14:40 | NUR ---
PA AT BEDSIDE AT THIS TIME.
[2019-10-24] MEDS ORDERED: NEOSPORIN OINT. PKT 1 PACKET ONE (14:50)
--- NOTE | 2019-10-24 14:59 | NUR ---
EMT AT BEDSIDE FOR DRESSING AT THIS TIME. PT TOLERATED WELL.
--- NOTE | 2019-10-24 15:07 | NUR ---
Patient given discharge instructions and they have confirmed that they understand the instructions. Patient ambulatory with steady gait.
== END 2019-10-24 15:07 | disposition home or self-care (01) ==
LOC: ED 13:42
DX: L03.032 Cellulitis of left toe (principal); L03.031 Cellulitis of right toe; L60.0 Ingrowing nail
CPT/HCPCS: 10060; 11730; 11750; 99284; 99285

== ENCOUNTER → 2020-09-27 | Outpatient (CLI) | payer MEDICARE, MEDICAID ==
[~2020-09-27] MED LIST changes: -HYDR-3245 PO; +HYDR1TAB53 PO; -OXYC5TAB3 PO; +OXYC5TAB98 PO
== END | disposition home or self-care (01) ==
LOC: LAB 15:39
PROVIDERS: ATTEND Family Medicine
DX: Z20.2 Contact with and (suspected) exposure to infections with a predominantly sexual mode of transmission (principal)
CPT/HCPCS: 36415; 86592; 86695; 86696; 86803; 87340; 87491; 87591; 87806; G0475